=== PATIENT | female | born 1950 | race Hispanic/Latino ===

== ENCOUNTER 2018-05-30 13:09 | Emergency (ER) | payer OTHER ==
--- NOTE | 2018-05-30 15:51 | RAD REPORT ---
EXAM DESCRIPTION: RAD - Chest Pa And Lat (2 Views) - 05/30/2018 3:33 pm CLINICAL HISTORY: Cough, history of pneumonia and fever COMPARISON: None. TECHNIQUE: PA and lateral views of the chest were obtained. FINDINGS: The lungs are underinflated. Interstitial and alveolar opacification present posterior rig ht lung base. Right costophrenic angle blunting present. Minimal stranding in the medial left lung b ase could be chronic interstitial disease or minimal interstitial edema/ infiltrate. Heart size is no rmal and central vasculature is within normal limits. No pneumothorax. Small right pleural effusion is evident. No acute bony finding noted. No aortic abnormality. IMPRESSION: Small posterior right lung base pneumonia. Minimal interstitial stranding in the medial left base on a baseline study. This could be chronic dis ease or minimal infiltrate. No comparison is available to determine if this is resolving pneumonia given the history.
--- NOTE | 2018-05-30 16:25 | ER ---
Nurse's Notes [facility] Name: Fifi Rodriguez Age: 67 yrs Sex: Female : 1950 Arrival Date: 05/30/2018 Time: 13:11 Bed 24 Private MD: Diagnosis: Pneumonia, unspecified organism;Urinary tract infection, site not specified Presentation: 05/30 13:18 Presenting complaint: Child states: She has a hx of pneumonia, and she has had fever sg and cough and pain in her upper back and under her R arm for several days. She has been seen at [facility] for biopsy of the lung on Apr 25 this year, reports that the biopsy was negative but she still needs a screening for colon cancer. Transition of care: patient was not received from another setting of care. Onset of symptoms was May 30, 2018. Risk Assessment: Do you want to hurt yourself or someone else? Patient reports no desire to harm self or others. Initial Sepsis Screen: Does the patient meet any 2 criteria? No. Patient's initial sepsis screen is negative. Does the patient have a suspected source of infection? Yes: Productive cough/pneumonia. Care prior to arrival: None. 13:18 Method Of Arrival: Ambulatory sg 13:18 Acuity: LUI 3 sg Triage Assessment: 13:21 General: Appears in no apparent distress. comfortable, well groomed, well developed, sg well nourished, Behavior is calm, cooperative, appropriate for age. Pain: Complains of pain in right scapular area and right subscapular area Quality of pain is described as stabbing. Respiratory: Airway is patent Respiratory effort is even, unlabored, Respiratory pattern is regular, symmetrical, Breath sounds are clear. Derm: Skin is pink, warm \T\ dry. Historical: - Allergies: 13:16 No Known Allergies; sg - PMHx: 13:21 Pneumonia; sg - PSHx: 13:21 Biopsy, Lung; sg - Immunization history:: Adult Immunizations up to date. - Social history:: Smoking status: Patient/guardian denies using tobacco. - Ebola Screening: : Patient negative for fever greater than or equal to 101.5 degrees Fahrenheit, and additional compatible Ebola Virus Disease symptoms Patient denies exposure to infectious person Patient denies travel to an Ebola-affected area in the 21 days before illness onset No symptoms or risks identified at this time. Screenin:12 Abuse screen: Denies threats or abuse. Denies injuries from another. Nutritional rv screening: No deficits noted. Tuberculosis screening: No symptoms or risk factors identified. Fall Risk None identified. Assessment: 15:11 General: Appears in no apparent distress. comfortable, Behavior is calm, cooperative. rv Pain: Complains of pain in back. Neuro: Level of Consciousness is awake, alert, obeys commands, Oriented to person, place, time, situation. Cardiovascular: Capillary refill < 3 seconds. Respiratory: Airway is patent. GI: No signs and/or symptoms were reported involving the gastrointestinal system. : No signs and/or symptoms were reported regarding the genitourinary system. EENT: No signs and/or symptoms were reported regarding the EENT system. Derm: Wound noted right subscapular area. Musculoskeletal: No signs and/or symptoms reported regarding the musculoskeletal system. Vital Signs: 13:14 BP 121 / 59; Pulse 67; Resp 18; Pulse Ox 99% on R/A; sg 13:16 Temp 98.7; sg 15:00 BP 132 / 65; Pulse 69; Resp 21 S; Pulse Ox 98% on R/A; rv 15:30 BP 102 / 63; Pulse 72; Resp 19 S; Pulse Ox 98% on R/A; rv 16:00 BP 108 / 70; Pulse 78; Resp 18; Pulse Ox 100% on Nebulizer Mask; rv 17:00 BP 112 / 68; Pulse 74; Resp 19; Pulse Ox 100% on Nebulizer Mask; rv ED Course: 13:11 Patient arrived in ED. as 13:14 Arm band placed on. sg 13:20 Triage completed. sg 15:01 Felecia Rawls FNP-C [facility]. snw 15:01 Malik Da Silva MD is Attending Physician. snw 15:13 Patient has correct armband on for positive identification. Bed in low position. Call rv light in reach. Side rails up X 1. Pulse ox on. NIBP on. 15:34 Chest Pa And Lat (2 Views) XRAY In Process Unspecified. EDMS 17:48 No provider procedures requiring assistance completed. Patient did not have IV access rv during this emergency room visit. 17:50 INCENTIVE SPIROMETRY Sent. rv Administered Medications: 16:30 Drug: Augmentin 875 mg Route: PO; rv 17:50 Follow up: Response: No adverse reaction rv 16:30 Drug: Albuterol 2.5 mg Route: Inhalation; rv 17:00 Drug: Albuterol 2.5 mg Route: Inhalation; rv 17:30 Drug: Albuterol 2.5 mg Route: Inhalation; rv 17:50 Follow up: Response: Marked relief of symptoms rv Outcome: 16:24 Discharge ordered by . nicholas 17:49 Discharged to home ambulatory. rv 17:49 Condition: improved 17:49 Discharge instructions given to patient, family, Instructed on discharge instructions, follow up and referral plans. medication usage, Demonstrated understanding of instructions, follow-up care, medications, Prescriptions given X 2. 17:51 Patient left the ED. rv Signatures: Dispatcher [employer] Marlon Hester, RN RN Felecia Flores, ADMITTANCE ATTENDANT-C ADMITTANCE ATTENDANT-[place]ess[place] Germaine Kim Ronaldo, RN RN rv
--- NOTE | 2018-05-30 16:25 | EDPHYS ---
Physician Documentation [facility] Name: Fifi Rodriguez Age: 67 yrs Sex: Female : 1950 Arrival Date: 05/30/2018 Time: 13:11 Bed 24 Private MD: ED Physician Malik Da Silva HPI: 05/30 16:36 This 67 yrs old Female presents to ER via Ambulatory with complaints of Cough, snw Back Problem. 16:36 The patient or guardian reports cough, described as moderate, sounds productive. Onset: snw The symptoms/episode began/occurred suddenly, and became persistent. Severity of symptoms: At their worst the symptoms were moderate. Associated signs and symptoms: Pertinent positives: right back pain. The patient has experienced similar episodes in the past. moved post lung biopsy from [place] and has an appt next week with [facility] in [place]. Historical: - Allergies: 13:16 No Known Allergies; sg - PMHx: 13:21 Pneumonia; sg - PSHx: 13:21 Biopsy, Lung; sg - Immunization history:: Adult Immunizations up to date. - Social history:: Smoking status: Patient/guardian denies using tobacco. - Ebola Screening: : Patient negative for fever greater than or equal to 101.5 degrees Fahrenheit, and additional compatible Ebola Virus Disease symptoms Patient denies exposure to infectious person Patient denies travel to an Ebola-affected area in the 21 days before illness onset No symptoms or risks identified at this time. ROS: 16:35 Constitutional: Negative for fever, chills, and weight loss, Eyes: Negative for injury, snw pain, redness, and discharge, ENT: Negative for injury, pain, and discharge, Neck: Negative for injury, pain, and swelling, Cardiovascular: Negative for chest pain, palpitations, and edema. 16:35 Abdomen/GI: Negative for abdominal pain, nausea, vomiting, diarrhea, and constipation, : Negative for injury, bleeding, discharge, and swelling, MS/Extremity: Negative for injury and deformity, Skin: Negative for injury, rash, and discoloration, Neuro: Negative for headache, weakness, numbness, tingling, and seizure. 16:35 Respiratory: Positive for cough, "sounds productive". 16:35 Back: Positive for pain at incision site s/p lung biopsy last month in [place]. Pt continues to take hydrocodone and bactrim from procedure. Discussed incentive spirometry . Exam: 16:32 Constitutional: This is a well developed, well nourished patient who is awake, alert, snw and in no acute distress. Head/Face: Normocephalic, atraumatic. Eyes: Pupils equal round and reactive to light, extra-ocular motions intact. Lids and lashes normal. Conjunctiva and sclera are non-icteric and not injected. Cornea within normal limits. Periorbital areas with no swelling, redness, or edema. ENT: Nares patent. No nasal discharge, no septal abnormalities noted. Tympanic membranes are normal and external auditory canals are clear. Oropharynx with no redness, swelling, or masses, exudates, or evidence of obstruction, uvula midline. Mucous membranes moist. Neck: Trachea midline, no thyromegaly or masses palpated, and no cervical lymphadenopathy. Supple, full range of motion without nuchal rigidity, or vertebral point tenderness. No Meningismus. Chest/axilla: Normal chest wall appearance and motion. Nontender with no deformity. No lesions are appreciated. Cardiovascular: Regular rate and rhythm with a normal S1 and S2. No gallops, murmurs, or rubs. Normal PMI, no JVD. No pulse deficits. Abdomen/GI: Soft, non-tender, with normal bowel sounds. No distension or tympany. No guarding or rebound. No evidence of tenderness throughout. Back: No spinal tenderness. No costovertebral tenderness. Full range of motion. Skin: Warm, dry with normal turgor. Normal color with no rashes, no lesions, and no evidence of cellulitis. MS/ Extremity: Pulses equal, no cyanosis. Neurovascular intact. Full, normal range of motion. Neuro: Awake and alert, GCS 15, oriented to person, place, time, and situation. Cranial nerves II-XII grossly intact. Motor strength 5/5 in all extremities. Sensory grossly intact. Cerebellar exam normal. Normal gait. 16:32 Skin: Warm, dry with normal turgor. Normal color with no rashes, no lesions, and no evidence of cellulitis. Previous surgical site to right lung with steri-strips intact, no discharge, wound appears to be healing well 16:32 Respiratory: the patient does not display signs of respiratory distress, Respirations: normal, Breath sounds: decreased breath sounds, that are mild, that are moderate, are heard in the right posterior middle lobe, cough. Vital Signs: 13:14 BP 121 / 59; Pulse 67; Resp 18; Pulse Ox 99% on R/A; sg 13:16 Temp 98.7; sg 15:00 BP 132 / 65; Pulse 69; Resp 21 S; Pulse Ox 98% on R/A; rv 15:30 BP 102 / 63; Pulse 72; Resp 19 S; Pulse Ox 98% on R/A; rv 16:00 BP 108 / 70; Pulse 78; Resp 18; Pulse Ox 100% on Nebulizer Mask; rv 17:00 BP 112 / 68; Pulse 74; Resp 19; Pulse Ox 100% on Nebulizer Mask; rv MDM: 15:08 Patient medically screened. snw 16:33 Data reviewed: vital signs, nurses notes. Data interpreted: Pulse oximetry: on room air snw is 99 %. Interpretation: normal. Counseling: I had a detailed discussion with the patient and/or guardian regarding: the historical points, exam findings, and any diagnostic results supporting the discharge/admit diagnosis, radiology results, the need for outpatient follow up, to return to the emergency department if symptoms worsen or persist or if there are any questions or concerns that arise at home. Special discussion: pt is seeing [facility] next week for gastric CA, dx in [place] s/p lung biopsy last month. Pt is on Bactrim status post incision for biopsy. . 05/30 15:28 Order name: Urine Dipstick--Ancillary (enter results) bd 05/30 15:08 Order name: Chest Pa And Lat (2 Views) XRAY; Complete Time: 15:55 snw 05/30 16:24 Order name: INCENTIVE SPIROMETRY snw Administered Medications: 16:30 Drug: Augmentin 875 mg Route: PO; rv 17:50 Follow up: Response: No adverse reaction rv 16:30 Drug: Albuterol 2.5 mg Route: Inhalation; rv 17:00 Drug: Albuterol 2.5 mg Route: Inhalation; rv 17:30 Drug: Albuterol 2.5 mg Route: Inhalation; rv 17:50 Follow up: Response: Marked relief of symptoms rv Disposition: 05/30/18 16:24 Discharged to Home. Impression: Pneumonia, unspecified organism, Urinary tract infection, site not specified. - Condition is Stable. - Discharge Instructions: Community-Acquired Pneumonia, Adult, Urinary Tract Infection, Adult, Incentive Spirometer, Rehydration, Adult. - Prescriptions for Augmentin 875- 125 mg Oral Tablet - take 1 tablet by ORAL route every 12 hours for 10 days; 20 tablet. Albuterol Sulfate 90 mcg/actuation - inhale 1-2 puff by INHALATION route every 4-6 hours; 1 Inhaler. - Medication Reconciliation Form, Thank You Letter, Antibiotic Education, Prescription Opioid Use form. - Follow up: Private Physician; When: 1 week; Reason: Recheck today's complaints, Continuance of care, Re-evaluation by your physician. Follow up: Emergency Department; When: As needed; Reason: Worsening of condition. Addendum: 05/31/2018 18:59 Co-signature as Attending Physician, Malik Da Silva MD I agree with the assessment and k dr plan of care. Signatures: Dispatcher [employer] EDMarlon Hawley RN RN Malik Da Silva MD [facility] Felecia Rawls, CHIEF CLERK-C CHIEF CLERK-[place] Nawaf Lema, RN RN rv Corrections: (The following items were deleted from the chart) 05/30 17:51 16:24 05/30/2018 16:24 Discharged to Home. Impression: Pneumonia, unspecified organism; rv Urinary tract infection, site not specified. Condition is Stable. Forms are Medication Reconciliation Form, Thank You Letter, Antibiotic Education, Prescription Opioid Use. Follow up: Private Physician; When: 1 week; Reason: Recheck today's complaints, Continuance of care, Re-evaluation by your physician. Follow up: Emergency Department; When: As needed; Reason: Worsening of condition. snw
[2018-05-30] MEDS ORDERED: ALBUTEROL 2.5 MG/3 ML NEB SOL ONE (16:37)
[2018-05-30] MEDS ORDERED: AMOX/K CLAV 875 MG TAB ONE (16:38)
[2018-05-30 19:35] LABS: Urine Blood NEGATIVE (NEG); Urine Glucose NEGATIVE (NEG); Urine Protein NEGATIVE (NEG); Urine pH 5.5 (5.0-7.0)
== END 2018-05-30 17:51 | disposition home or self-care (01) ==
LOC: ER 13:09
DX: J18.9 Pneumonia, unspecified organism (principal); N39.0 Urinary tract infection, site not specified
CPT/HCPCS: 71046; 81003; 99284